=== PATIENT | female | born 1990 | race Caucasian/White ===

== ENCOUNTER 2019-01-03 05:17 | Day surgery (SDC) | payer OTHER ==
[2019-01-03] VITALS (17 sets, daily range): BP systolic 110–128; BP diastolic 63–84; PULSE 62–95; RESP 13–24; Ht 152.4 cm; Wt 72.3 kg
[~2019-01-03] VITALS: Ht 152.4 cm; Wt 72.3 kg
[2019-01-03] MEDS ORDERED: CEFAZOLIN 2 GM/50 ML (PMX) 50 ML IVPB SCH (06:00)
[2019-01-03] MEDS ORDERED: SOD CHLORIDE 0.9% 1,000 ML IV ONE (06:00)
[2019-01-03] MEDS ORDERED: NEOSTIGMINE 3 MG/3 ML SYRINGE ONE (07:38)
[2019-01-03] MEDS ORDERED: ROCURONIUM 50 MG INJ ONE (07:38)
[2019-01-03] MEDS ORDERED: GLYCOPYRROLATE 0.4 MG INJ ONE (07:38)
[2019-01-03] MEDS ORDERED: PROPOFOL 40 ML ONE (07:38)
[2019-01-03] MEDS ORDERED: CEFAZOLIN 1 GM INJ ONE (07:38)
[2019-01-03] MEDS ORDERED: MIDAZOLAM 1 MG/ML 2 ML INJ ONE ×2 (07:39)
[2019-01-03] MEDS ORDERED: ONDANSETRON 4 MG INJ ONE (07:39)
[2019-01-03] MEDS ORDERED: DEXAMETHASONE 4 MG/ML 5 ML INJ ONE (07:39)
[2019-01-03] MEDS ORDERED: FENTAnyl 50 MCG/ML VIAL ONE ×2 (07:39)
[2019-01-03] MEDS ORDERED: ROPIVACAINE 0.5 % 30 ML VIAL ONE (07:41)
[2019-01-03] MEDS ORDERED: OXYCODONE/ACETAMINOPHEN (5/325) TAB PO PRN ×2 (08:00)
[2019-01-03] MEDS ORDERED: DIPHENHYDRAMINE 50 MG INJ IV PRN (08:00)
[2019-01-03] MEDS ORDERED: MIDAZOLAM 1 MG/ML 2 ML INJ IV PRN (08:00)
[2019-01-03] MEDS ORDERED: ALBUTEROL 0.083% (NEB) 2.5 MG/3 ML AMP HHN PRN (08:00)
[2019-01-03] MEDS ORDERED: ONDANSETRON 4 MG INJ IV PRN (08:00)
[2019-01-03] MEDS ORDERED: LABETALOL HCL 20MG INJ IV PRN (08:00)
[2019-01-03] MEDS ORDERED: TRIMETHOBENZAMIDE 100 MG/ML VIAL IM PRN (08:00)
[2019-01-03] MEDS ORDERED: MEPERIDINE 25 MG INJ IV PRN (08:00)
[2019-01-03] MEDS ORDERED: HYDROmorphONE 1 MG/5 ML IV SYRINGE IV PRN ×3 (08:00)
[2019-01-03] MEDS ORDERED: hydrALAzine 20 MG INJ IV PRN (08:00)
[2019-01-03] MEDS ORDERED: IPRATROPIUM (NEB) 0.5 MG/2.5 ML AMP HHN PRN (08:00)
[2019-01-03] MEDS ORDERED: FENTAnyl 50 MCG/ML VIAL IV PRN ×3 (08:00)
[2019-01-03] MEDS ORDERED: EPHEDrine 25 MG/5 ML SYG IV PRN (08:00)
[2019-01-03] MEDS ORDERED: KETOROLAC 30 MG INJ ONE (08:38)
[2019-01-03] MEDS ORDERED: HYDROCODONE/APAP (5/325) TAB PO ONE (09:00)
== END 2019-01-03 10:57 | disposition home or self-care (01) ==
LOC: SDS 05:17
PROVIDERS: ATTEND Surgery
DX: K80.10 Calculus of gallbladder with chronic cholecystitis without obstruction (principal); K80.20 Calculus of gallbladder without cholecystitis without obstruction
CPT/HCPCS: 80053; 85025; 85610; 85730; 88304; J0690; J1100; J1170; J1885; J2250; J2405; J2710; J2795; J3010